=== PATIENT | female | born 1965 | race Caucasian/White ===

== ENCOUNTER 2019-06-09 14:05 | Emergency (ER) | payer OTHER, SELFPAY ==
--- NOTE | ~2019-06-09 | XR_ITS ---
EXAMINATION: XR chest 1V portable EXAM DATE: 06/09/2019 15:49 INDICATION: Cough, low-grade fever. TECHNIQUE: Portable AP frontal chest x-ray was obtained. Comparison is made to prior examination from 07/01/2017. FINDINGS: The lungs are clear. There are no pleural effusions. The cardiomediastinal silhouette is within normal limits. There is no pneumothorax suspected. The bones and soft tissues are unremarkab le. IMPRESSION: No acute cardiopulmonary findings. Reviewed, dictated and finalized at location A.
[2019-06-09 14:25] VITALS: BP 132/58; PULSE 84; RESP 18; TEMP 36.8; O2SAT 99
--- NOTE | 2019-06-09 14:36 | PC.NURSE ---
patient reports a four week history of being sick has been treated for shingle and uri.reports to er today with multiple and varied complaints includingsore throat, cough generalized edema and genital history. patient is weeping while giving health history
[2019-06-09 15:14] LABS: Basophils Absolute Auto 0.1 K/mm3 (0.0-0.1); Basophils Percent Auto 0.5 % (0.2-1.2); Eosinophils Absolute Auto 0.6 K/mm3 (0-0.3); Eosinophils Percent Auto 5.4 % (0-4.4); Hematocrit 40.8 % (37.0-47.0); Immature Granulocyte Absolute 0.02 K/mm3 (0.00-0.031); Immature Granulocyte Percent A 0.2 % (0-0.5); Lymphocytes Absolute Auto 4.32 K/mm3 (0.9-3.2); Lymphocytes Percent Auto 41.3 % (18.3-44.2); Mean Corpuscular HGB Conc 34.3 g/dl (32-36); Mean Corpuscular Hemoglobin 32.6 pg (26-34); Mean Corpuscular Volume 94.9 fl (80-100); Mean Platelet Volume 9.5 fl (7.4-10.4); Monocytes Absolute Auto 0.7 K/mm3 (0.1-0.6); Monocytes Percent Auto 6.8 % (2.6-8.5); Neutrophils Absolute Auto 4.8 K/mm3 (1.3-6.7); Neutrophils Percent Auto 45.8 % (45.5-73.1); Platelet Count Result 269 k/mm3 (150-375); Red Cell Distribution Width 13.2 % (11.5-14.5); White Blood Count 10.5 K/mm3 (4.5-10.0)
--- NOTE | 2019-06-09 15:18 | ED.GENADULT ---
HPI - General Adult General Chief complaint: Headache Stated complaint: edema knees Time Seen by Provider: 06/09/19 14:12 Source: patient Mode of arrival: ambulatory Limitations: no limitations History of Present Illness HPI narrative: Patient is a 53-year-old female who presents to emergency department for evaluation of generalized myalgias rash in the groin upper respiratory symptoms for the last 10 days seen at an outside hospital prescribed a Z-Ramon which she finished several days ago and notes he continues to have nonproductive cough generalized myalgias rash in the groin. Patient notes she gets intermittent nausea and vomiting denying any current diarrhea or urinary symptoms. Patient has been taking [id number] medications with minimal improvement notes that her blood glucose is also been elevated. Related Data Allergies Allergy/AdvReac Type Severity Reaction Status Date / Time peanut Allergy Severe Anaphylactic Verified 06/08/17 03:18 Shock codeine Allergy Mild Verified 06/08/17 03:18 Penicillins Allergy Unknown Unverified 06/08/17 03:18 Sulfa (Sulfonamide Allergy Unknown Hives / Verified 06/08/17 03:18 Antibiotics) Red Face CILLINS Allergy Mild Uncoded 08/17/07 15:26 Review of Systems Review of Systems: All systems reviewed & are unremarkable except as noted in HPI and below PMFSH Past Medical History Medical History (Updated 06/09/19 @ 16:40 by Stuart Benz PA-C) Diabetes mellitus Social History Social History (Updated 06/09/19 @ 15:22 by Stuart Benz PA-C) Smoking status: Never smoker Exam Narrative: Exam Narrative: GENERAL: Well-appearing, well-nourished, and in no acute distress. HEAD: Normocephalic, atraumatic. EYES: PERRLA and EOMI. ENT: Nares clear, no rhinorrhea or epistaxis. Mucous membranes moist. Oropharynx without tonsillar hypertrophy exudate or other lesions. NECK: Supple. No adenopathy or masses. CHEST: Clear to auscultation. No respiratory distress. No wheezes rales or rhonchi HEART: Regular rate and rhythm. No murmur heard. Normal peripheral pulses. ABDOMEN: Soft, nontender, nondistended, EXTREMITIES: Normal range of motion. No edema. SKIN: Warm, dry, no rash. NEURO: No focal deficits. Alert and oriented x3. Cranial nerves II through XII grossly intact PSYCH: Normal mood and affect. Course Course Emergency Course: Patient in the room in no distress advised to follow with primary care no distress Vital Signs Vital signs: Vital Signs Temperature 98.2 F 06/09/19 14:25 Pulse Rate 84 06/09/19 14:25 Respiratory Rate 18 06/09/19 14:25 Blood Pressure 132/58 L 06/09/19 14:25 Pulse Oximetry 99 06/09/19 14:25 Temperature 98.2 F 06/09/19 14:25 Pulse Rate 84 06/09/19 14:25 Respiratory Rate 18 06/09/19 14:25 Blood Pressure 132/58 L 06/09/19 14:25 Pulse Oximetry 99 06/09/19 14:25 Medical Decision Making MDM Narrative Medical decision making narrative: Patient in the room in no distress aware of case findings treatment plan and diagnosis agreeing to follow-up as directed or to return if symptoms worsen or concerns patient is afebrile nontoxic-appearing no distress felt appropriate for outpatient reevaluation. No pneumonia seen on exam. Patient is not hypoxic. Patient advised that she could potentially have viral syndrome or Covid virus and is advised to self quarantine and to follow with primary care and provided with reasons to return Vital Signs Vital Signs: Vital Signs Temperature 98.2 F 06/09/19 14:25 Pulse Rate 84 06/09/19 14:25 Respiratory Rate 18 06/09/19 14:25 Blood Pressure 132/58 L 06/09/19 14:25 Pulse Oximetry 99 06/09/19 14:25 Temperature 98.2 F 06/09/19 14:25 Pulse Rate 84 06/09/19 14:25 Respiratory Rate 18 06/09/19 14:25 Blood Pressure 132/58 L 06/09/19 14:25 Pulse Oximetry 99 06/09/19 14:25 Lab Data Result diagrams: 06/09/19 15:02 06/09/19 15:02
[2019-06-09] MEDS: ONDANSETRON INJ 4 MG/2 ML VIAL IV PUSH (15:30)
[2019-06-09 15:31] LABS: Alanine Aminotransferase 49 U/L (4-35); Albumin Level 3.8 g/dL (3.5-5.1); Alkaline Phosphatase 118 U/L (38-126); Aspartate Amino Transferase 47 U/L (14-36); Bilirubin,Total 0.4 mg/dL (0.2-1.3); Blood Urea Nitrogen 15 mg/dL (7-17); Calcium 8.4 mg/dL (8.4-10.2); Carbon Dioxide 29 mmol/L (22-30); Chloride 98 mmol/L (98-107); Estimated CRCL calculation 69 ml/min; Estimated Glomerular Filt Rate > 60; Glucose 170 mg/dL (65-105); Magnesium 1.9 mg/dL (1.6-2.3); Phosphorus 3.3 mg/dL (2.5-4.5); Sodium 133 mmol/L (137-145)
[2019-06-09] MEDS: SODIUM CHLORIDE 0.9% IV 1,000 ML 999 ML IV CONT ×2 (15:31→15:59)
[2019-06-09 15:32] LABS: Beta-Hydroxybutyrate/Acetoacetate 0.08 mmol/L (0.02-0.27)
[2019-06-09 15:35] LABS: Potassium 3.8 mmol/L (3.4-5.0)
[2019-06-09 16:05] VITALS: BP 108/75; PULSE 79; RESP 23; O2SAT 96
[2019-06-09 16:30] LABS: Add Urine Microscopic? YES; Appearance Urine Clear (Clear); Bilirubin Urine Negative (Negative); Blood Urine Negative (Negative); Color Urine Straw (Yellow); Glucose Urine UA 1+ mg/dL (Negative); Ketones Urine Negative (Negative); Leukocyte Esterase Ur Negative LEU/UL (Negative); Nitrate Urine Negative (Negative); Protein Urine Negative (Negative); RBC Urine 0-2 /hpf (0-2); Specific Grav Ur 1.009 (1.001-1.035); Squamous Epithelial Cell Urine Rare /hpf (Few); Urobilinogen Urine Negative mg/dL (<2.0); WBC Urine 0-3 /hpf
[2019-06-09 17:09] VITALS: BP 136/78; PULSE 80; RESP 20; O2SAT 99
--- NOTE | 2019-06-29 15:28 | PC.NURSE ---
late entry note from 4-13. 2 liters of normal saline infused
== END 2019-06-09 17:15 | disposition home or self-care (01) ==
PROVIDERS: Emergency Medicine Emergency Medical Services; Emergency Provider Emergency Medicine; PCP Family Medicine
DX: J06.9 Acute upper respiratory infection, unspecified (principal); B37.3 Candidiasis of vulva and vagina; Z20.828 Contact with and (suspected) exposure to other viral communicable diseases; E11.9 Type 2 diabetes mellitus without complications
CPT/HCPCS: 36415; 71045; 80053; 81001; 82010; 83735; 84100; 85025; 96361; 96365; 96375; 99284; J0131; J2405; J7030

== ENCOUNTER 2020-02-16 10:28 | Emergency (ER) | payer OTHER, SELFPAY ==
--- NOTE | ~2020-02-16 | XR_ITS ---
EXAMINATION: [id number] DATE: 02/16/2020 10:46 INDICATION: Right lower rib pain. Fall 2 days ago. TECHNIQUE: A frontal view of the chest and 3 views of the right ribs were obtained. COMPARISON: Chest single view 06/09/19, CT abdomen and pelvis 09/25/2015 FINDINGS: The chest demonstrates clear lungs without pneumonia, pleural effusion, or pneumothorax. Th e heart size is normal. Surgical clips in the right upper quadrant are likely from cholecystectomy. T here are old healed fractures of right seventh and eighth ribs. IMPRESSION: 1. No acute rib fracture. Reviewed, dictated and finalized at location B. MANAGER IMPRESSION: 1. No acute rib fracture.
--- NOTE | 2020-02-16 10:29 | ED.FALL ---
HPI - Fall General Chief Complaint: Fall Stated Complaint: FALL/RIB PAIN Time Seen by Provider: 02/16/20 10:49 Source: patient and RN notes reviewed Mode of arrival: ambulatory Limitations: no limitations History of Present Illness HPI Narrative: 54-year-old female presents with concern for a fall 3 days ago, reports she landed on a plastic box causing pain to her right lower ribs anteriorly. Reports pain immediately. Denies any difficulty breathing, shortness of breath. Reports deep breathing coughing, certain movements exacerbate pain. She reports she already takes pain medicine for arthritis. She has not been doing any other interventions for her pain MD complaint: fall Related Data Home Medications Medication Instructions Recorded Confirmed alprazolam 02/16/20 amlodipine 02/16/20 bupropion HCl mg PO 02/16/20 buspirone mg 02/16/20 calcium carbonate [Calcium Antacid] tablet 02/16/20 clonazepam 02/16/20 dicyclomine mg 02/16/20 duloxetine mg PO 02/16/20 gabapentin 02/16/20 hydrochlorothiazide 02/16/20 hydrocodone-acetaminophen 02/16/20 insulin lispro [Humalog KwikPen unit SUBCUT 02/16/20 Insulin] levothyroxine 02/16/20 metoclopramide HCl 02/16/20 omeprazole 02/16/20 ondansetron HCl 02/16/20 terbinafine HCl mg 02/16/20 trazodone 02/16/20 Allergies Allergy/AdvReac Type Severity Reaction Status Date / Time peanut Allergy Severe Anaphylactic Verified 06/08/17 03:18 Shock codeine Allergy Mild Verified 06/08/17 03:18 Penicillins Allergy Unknown Unverified 06/08/17 03:18 Sulfa (Sulfonamide Allergy Unknown Hives / Verified 06/08/17 03:18 Antibiotics) Red Face CILLINS Allergy Mild Uncoded 08/17/07 15:26 Review of Systems Review of Systems: Narrative: CONSTITUTIONAL: Denies malaise, chills, sweats, or fever. CARDIOVASCULAR: Denies chest pain, palpitations, or edema. RESPIRATORY: Denies cough or dyspnea. Reports rib pain, right anterior GASTROINTESTINAL: Denies abdominal pain, nausea, vomiting SKIN: Denies bruising, redness, open skin MUSCULOSKELETAL: Reports right rib pain All systems reviewed & are unremarkable except as noted in HPI and below PMFSH Past Medical History Medical History (Updated 02/16/20 @ 11:11 by Deneen Pollock NP) Diabetes mellitus Social History Social History (Updated 06/09/19 @ 15:22 by Stuart Benz PA-C) Smoking status: Never smoker Comments At time of signature, agree with nursing past medical, surgical, social and family history. There is no relevant family history pertinent to the presenting complaint Exam Narrative: Exam Narrative: GENERAL: Well-appearing, well-nourished, and in no acute distress. HEAD: Normocephalic, atraumatic. EYES: PERRLA, conjunctivae clear NECK: Supple. CHEST: No respiratory distress. Clear to auscultation. No bony deformities, no asymmetry. Speaks in full sentences. No visible trauma, bruising, redness, deformities HEART: Regular rate and rhythm. No murmur heard. SKIN: Warm, dry, no rash. No ecchymosis, erythema noted to chest wall NEURO: Alert and oriented x3. PSYCH: Normal mood and affect Course Course Emergency Course: Patient is aware of diagnosis, understands and agrees to treatment plan. Anticipatory guidance given. Patient agrees to follow-up as directed and is aware of reasons to seek care at the emergency department. Portions of this record may have been created with voice recognition software Vital Signs Vital signs: Vital Signs Temperature 96 F L 02/16/20 10:35 Pulse Rate 96 02/16/20 10:35 Respiratory Rate 22 H 02/16/20 10:35 Blood Pressure 138/97 H 02/16/20 10:35 Pulse Oximetry 100 02/16/20 10:35 Temperature 96 F L 02/16/20 10:37 Pulse Rate 96 02/16/20 10:37 Respiratory Rate 22 H 02/16/20 10:37 Blood Pressure 138/97 H 02/16/20 10:37 Pulse Oximetry 100 02/16/20 10:37 Reviewed. MDM - Fall MDM Narrative Medical decision making narrative:
[2020-02-16 10:35] VITALS: BP 138/97; PULSE 96; RESP 22; TEMP 35.5; O2SAT 100
[2020-02-16 10:37] VITALS: BP 138/97; PULSE 96; RESP 22; TEMP 35.5; O2SAT 100
== END 2020-02-16 11:16 | disposition home or self-care (01) ==
PROVIDERS: Emergency Provider Nurse Practitioner; PCP Family Medicine
DX: S20.211A Contusion of right front wall of thorax, initial encounter (principal); W19.XXXA Unspecified fall, initial encounter; M19.90 Unspecified osteoarthritis, unspecified site; E11.9 Type 2 diabetes mellitus without complications; J44.9 Chronic obstructive pulmonary disease, unspecified
CPT/HCPCS: 71101; 99213; G0463

== ENCOUNTER 2020-02-21 11:18 | Emergency (ER) | payer OTHER, SELFPAY ==
--- NOTE | ~2020-02-21 | XR_ITS ---
EXAMINATION: XR wrist RT min 3V DATE: 02/21/2020 11:35 INDICATION: Right wrist pain and swelling. TECHNIQUE: 5 views of right wrist were obtained. COMPARISON: None. FINDINGS: There is an avulsion fracture of dorsal pole of triquetrum. There is mild osteoarthritis of first carpometacarpal joint. There is soft tissue swelling of the wrist. IMPRESSION: 1. Avulsion fracture of dorsal pole of triquetrum. Reviewed, dictated and finalized at location A. MIC TILE INSTALLER
[2020-02-21 11:22] VITALS: BP 119/83; PULSE 101; RESP 16; TEMP 36.6; O2SAT 99
--- NOTE | 2020-02-21 11:45 | ED.UPPEXIN ---
HPI - Extremity Injury (Upper) General Chief Complaint: Extremity Injury, Upper Stated Complaint: rt wrist injury Time Seen by Provider: 02/21/20 11:44 Source: patient and RN notes reviewed Mode of arrival: ambulatory Limitations: no limitations History of Present Illness HPI narrative: 54-year-old female presents concern for right wrist injury. Reports last night she was looking at [employer] lights in her yard when she tripped over a wire in the yard causing right wrist swelling, pain. Reports she used ice last night. Denies decreased sensation, strength in right hand, digits. Reports decreased range of motion due to digit swelling. MD complaint: injury to: right and wrist Related Data Home Medications Medication Instructions Recorded Confirmed amlodipine 02/16/20 bupropion HCl mg PO 02/16/20 buspirone mg 02/16/20 calcium carbonate [Calcium Antacid] tablet 02/16/20 clonazepam 02/16/20 dicyclomine mg 02/16/20 duloxetine mg PO 02/16/20 hydrochlorothiazide 02/16/20 hydrocodone-acetaminophen 02/16/20 insulin lispro [Humalog KwikPen unit SUBCUT 02/16/20 Insulin] levothyroxine 02/16/20 omeprazole 02/16/20 ondansetron HCl 02/16/20 terbinafine HCl mg 02/16/20 trazodone 02/16/20 Allergies Allergy/AdvReac Type Severity Reaction Status Date / Time peanut Allergy Severe Anaphylactic Verified 06/08/17 03:18 Shock codeine Allergy Mild Anaphylaxis Verified 02/21/20 11:36 Penicillins Allergy Unknown Anaphylaxis Unverified 02/21/20 11:36 Sulfa (Sulfonamide Allergy Unknown Hives / Verified 06/08/17 03:18 Antibiotics) Red Face CILLINS Allergy Mild Anaphylaxis Uncoded 02/21/20 11:36 Review of Systems Review of Systems: Narrative: CONSTITUTIONAL: Denies malaise, chills, sweats, or fever. SKIN: Denies abrasion, laceration MUSCULOSKELETAL: Reports right wrist pain, swelling NEUROLOGIC: Denies numbness, weakness All systems reviewed & are unremarkable except as noted in HPI and below PMFSH Past Medical History Medical History (Updated 02/21/20 @ 11:54 by Deneen Pollock NP) Diabetes mellitus Social History Social History (Updated 06/09/19 @ 15:22 by Stuart Benz PA-C) Smoking status: Never smoker Comments At time of signature, agree with nursing past medical, surgical, social and family history. There is no relevant family history pertinent to the presenting complaint Exam Narrative: Exam Narrative: GENERAL: Well-appearing, well-nourished, and in no acute distress. HEAD: Normocephalic, atraumatic. EYES: PERRLA, conjunctivae clear NECK: Supple. CHEST: Speaks in full sentences. No respiratory distress. HEART: Regular rate and rhythm. Normal and equal peripheral pulses. EXTREMITIES: Right wrist, hand, digits have normal strength and sensation, limited normal range of motion. Dorsal wrist edema and ecchymosis. 5/5 strength with digit flexion and extension. Normal sensation with sensitivity to light touch and pain. Dorsal wrist tenderness. No open wounds, no skin tenting, no devitalized tissue or atrophy, no trophic changes, no obvious deformity, alignment normal, nearby joints and structures intact. Distal pulses palpable and equal bilaterally, skin warm, dry, pink. Capillary refill less than 3 seconds. SKIN: Warm, dry, no rash. NEURO: Alert and oriented x3. PSYCH: Normal mood and affect Course Course Emergency Course: Patient reports she feels safe at home. 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 Patient is aware of diagnosis, understands and agrees to treatment plan. Anticipatory guidance given. Patient agrees to follow-up as directed and is aware of reasons to seek care at the emergency department. Portions of this record may have been created with voice recognition software Vital Signs Vital signs: Vital Signs Temperature 97.8 F 02/21/20 11:22 Pulse Rate 101 H 02/21/20 11:22
== END 2020-02-21 12:09 | disposition home or self-care (01) ==
PROVIDERS: Emergency Provider Nurse Practitioner; PCP Family Medicine
DX: S62.111A Displaced fracture of triquetrum [cuneiform] bone, right wrist, initial encounter for closed fracture (principal); W18.09XA Striking against other object with subsequent fall, initial encounter; I10 Essential (primary) hypertension; J44.9 Chronic obstructive pulmonary disease, unspecified; K21.9 Gastro-esophageal reflux disease without esophagitis; E11.9 Type 2 diabetes mellitus without complications; F41.9 Anxiety disorder, unspecified
CPT/HCPCS: 29125; 73110; 99214; A4565; G0463

== ENCOUNTER 2020-05-02 12:25 | Emergency (ER) | payer OTHER, SELFPAY ==
[2020-05-02 12:28] VITALS: BP 178/112; PULSE 99; RESP 16; TEMP 36.3; O2SAT 99
--- NOTE | 2020-05-02 13:40 | PC.NURSE ---
pt states is going to her pmds office to have labs completed.
== END 2020-05-02 13:40 | disposition left against medical advice (07) ==
LOC: ANHED 13:52
PROVIDERS: PCP Family Medicine
DX: M25.552 Pain in left hip (principal)
CPT/HCPCS: 99199

== ENCOUNTER 2020-06-21 12:26 | Emergency (ER) | payer OTHER, SELFPAY ==
[2020-06-21] VITALS (7 sets, daily range): BP systolic 128–156; BP diastolic 79–97; PULSE 74–82; RESP 16–18; TEMP 35.6; O2SAT 95–100
--- NOTE | ~2020-06-21 | CT_ITS ---
EXAMINATION: CT abdomen pelvis w con EXAM DATE: 06/21/2020 14:45 INDICATION: Epigastric pain for a few weeks. History of pancreatitis.. TECHNIQUE: Spiral CT of the abdomen and pelvis was performed following intravenous injection of 100 m L Omnipaque 350. Axial, coronal and sagittal images of the abdomen and pelvis were reviewed. The do se-length product (DLP) for this examination was 386.73 mGy-cm. The exposure was tailored according to patient size (auto mA exposure control), and iterative reconstruction (ASIR) was used as additiona l dose reduction technique. Comparison is made to prior examination from 10/05/2015. FINDINGS: Interval development of a 2 cm partially cystic mass left kidney midpole anterior cortex co nsistent with renal cell cancer. There is no hydronephrosis. The liver, spleen, adrenal glands and p ancreas are unremarkable. There are surgical clips in the gallbladder fossa. Some biliary duct dila tion which is common finding following cholecystectomy. The uterus is not identified and has likely been surgically resected. The bladder is unremarkable. There is no retroperitoneal or pelvic lympha denopathy. There is moderate scattered arteriosclerotic disease. The appendix is not positively visualized. There is no pericecal inflammatory change to suggest appe ndicitis. The stomach and small bowel are unremarkable. There is moderate amount of colonic stool. No free intraperitoneal gas. The heart is normal in size. There are no pericardial or pleural e ffusions. Bibasilar subsegmental atelectasis. There are no osteoblastic or osteolytic lesions ident ified. IMPRESSION: 1. Interval development small left renal mass, likely renal cell cancer. consult. 2. No evidence of metastatic disease or acute intra-abdominal findings. Reviewed, dictated and finalized at location A. IMPRESSION: 1. Interval development small left renal mass, likely renal cell cancer. co nsult. 2. No evidence of metastatic disease or acute intra-abdominal findings.
[2020-06-21 13:25] LABS: Basophils Absolute Auto 0.1 K/mm3 (0.0-0.1); Basophils Percent Auto 0.6 % (0.2-1.2); Eosinophils Absolute Auto 0.7 K/mm3 (0-0.3); Eosinophils Percent Auto 6.3 % (0-4.4); Hematocrit 42.7 % (37.0-47.0); Hemoglobin 14.3 g/dL (12.0-15.0); Immature Granulocyte Absolute 0.03 K/mm3 (0.00-0.031); Immature Granulocyte Percent A 0.3 % (0-0.5); Lymphocytes Absolute Auto 4.68 K/mm3 (0.9-3.2); Lymphocytes Percent Auto 41.1 % (18.3-44.2); Mean Corpuscular HGB Conc 33.5 g/dl (32-36); Mean Corpuscular Hemoglobin 31.9 pg (26-34); Mean Corpuscular Volume 95.3 fl (80-100); Mean Platelet Volume 9.4 fl (7.4-10.4); Monocytes Absolute Auto 0.8 K/mm3 (0.1-0.6); Monocytes Percent Auto 6.8 % (2.6-8.5); Neutrophils Absolute Auto 5.1 K/mm3 (1.3-6.7); Neutrophils Percent Auto 44.9 % (45.5-73.1); Platelet Count Result 305 k/mm3 (150-375); Red Blood Count 4.48 M/mm3 (4.2-5.4); Red Cell Distribution Width 13.4 % (11.5-14.5); White Blood Count 11.4 K/mm3 (4.5-10.0)
[2020-06-21 13:31] LABS: Add Urine Microscopic? YES; Appearance Urine Cloudy (Clear); Bacteria Urine Trace /hpf; Bilirubin Urine Negative (Negative); Blood Urine Negative (Negative); Color Urine Yellow (Yellow); Glucose Urine UA Negative (Negative); Ketones Urine Negative (Negative); Leukocyte Esterase Ur 1+ LEU/UL (Negative); Mucus Urine Rare /lpf; Nitrate Urine Negative (Negative); Protein Urine 1+ mg/dL (Negative); Specific Grav Ur 1.023 (1.001-1.035); Squamous Epithelial Cell Urine Many /hpf (Few); Urobilinogen Urine Negative mg/dL (<2.0)
[2020-06-21] MEDS: ONDANSETRON INJ 4 MG/2 ML VIAL IV PUSH (13:45)
[2020-06-21] MEDS: SODIUM CHLORIDE 0.9% IV 1,000 ML 999 ML IV CONT (13:45)
[2020-06-21] MEDS: MORPHINE SULFATE (*CRX) 4 MG/ML INJ IV PUSH (13:45)
[2020-06-21 14:05] LABS: Albumin Level 3.9 g/dL (3.5-5.1); Alkaline Phosphatase 115 U/L (38-126); Anion Gap 7 mmol/L (8-16); Aspartate Amino Transferase 29 U/L (14-36); Bilirubin,Total 0.2 mg/dL (0.2-1.3); Blood Urea Nitrogen 9 mg/dL (7-17); Calcium 8.3 mg/dL (8.4-10.2); Carbon Dioxide 27 mmol/L (22-30); Chloride 100 mmol/L (98-107); Estimated CRCL calculation 68 ml/min; Estimated Glomerular Filt Rate > 60; Glucose 241 mg/dL (65-105); Lipase 129 U/L (23-300); Potassium 3.2 mmol/L (3.4-5.0); Sodium 134 mmol/L (137-145)
[2020-06-21 14:24] LABS: Alanine Aminotransferase 22 U/L (4-35)
--- NOTE | 2020-06-21 14:27 | ED.ABDPAIN ---
HPI - Abdominal Pain General Chief Complaint: Abdominal Pain Stated Complaint: ABD Pain, Back Pain Time Seen by Provider: 06/21/20 12:36 History of Present Illness HPI narrative: Patient is a 54-year-old female who presents ER with epigastric pain. Patient has history of pancreatitis has been recurrent for years related to her diabetes. She feels like she has had increased flare over the last 2 weeks. Pain is sharp and radiates to her back. She works fever of 100.2 ?F last night. Sure reports that she has had outpatient esophageal dilation and last couple days had to [facility] which is where she is also had some recent work-up for her chronic pancreatitis. She reports she had a CT scan there that showed a couple of lesions on her pancreas and her liver that they are continuing to evaluate. She has had no biopsies. Related Data Home Medications Medication Instructions Recorded Confirmed amlodipine 10 mg PO DAILY 02/16/20 02/21/20 bupropion HCl 150 mg PO DAILY 02/16/20 02/21/20 buspirone 10 mg PO TID 02/16/20 02/21/20 calcium carbonate [Calcium Antacid] 1 tablet PO . DIRECTED 02/16/20 02/21/20 clonazepam 0.5 mg PO DAILY PRN 02/16/20 02/21/20 dicyclomine 20 mg PO BID PRN 02/16/20 02/21/20 duloxetine 60 mg PO DAILY 02/16/20 02/21/20 hydrochlorothiazide 25 mg PO DAILY 02/16/20 02/21/20 hydrocodone-acetaminophen 1 tablet PO Q4-6H PRN 02/16/20 02/21/20 insulin lispro [Humalog KwikPen 0 unit SUBCUT . DIRECTED 02/16/20 02/21/20 Insulin] levothyroxine 125 mcg PO DAILY 02/16/20 02/21/20 omeprazole 20 mg PO DAILY 02/16/20 02/21/20 ondansetron HCl 4 mg PO DAILY PRN 02/16/20 02/21/20 terbinafine HCl 250 mg PO DAILY 02/16/20 02/21/20 trazodone 100 mg PO HS 02/16/20 02/21/20 Allergies Allergy/AdvReac Type Severity Reaction Status Date / Time peanut Allergy Severe Anaphylactic Verified 06/21/20 13:08 Shock codeine Allergy Mild Anaphylaxis Verified 06/21/20 13:08 Penicillins Allergy Unknown Anaphylaxis Verified 06/21/20 13:08 Sulfa (Sulfonamide Allergy Unknown Hives / Verified 06/21/20 13:08 Antibiotics) Red Face CILLINS Allergy Mild Anaphylaxis Uncoded 06/21/20 13:08 Review of Systems Review of Systems: All systems reviewed & are unremarkable except as noted in HPI and below Constitutional: Constitutional: Reports chills, Reports fever(s) and Reports weakness ENT: Denies nasal congestion and Denies sore throat Cardiovascular: Cardiovascular: Denies chest pain, Denies rapid heart rate and Denies radiating jaw, neck or arm pain Respiratory: Respiratory: Denies cough and Denies dyspnea Gastrointestinal: Gastrointestinal: Reports abdominal pain, Reports diarrhea (Chronic), Reports nausea and Reports vomiting Genitourinary: Genitourinary: Denies nocturia, Denies dysuria and Denies flank pain Musculoskeletal: Musculoskeletal: Denies back pain and Denies muscle cramps PMFSH Past Medical History Medical History (Updated 06/21/20 @ 16:46 by Sourav Ware MD) COPD (chronic obstructive pulmonary disease) Diabetes mellitus History of pancreatitis Hypertension Surgical History Surgical History (Updated 06/21/20 @ 14:30 by Sourav Ware MD) H/O esophagogastroduodenoscopy History of cholecystectomy Social History Social History (Updated 03/22/20 @ 10:54 by Roselyn Benz) Smoking status: Current every day smoker Alcohol intake: never Additional occupation/education comments: disabled Gender identity (if verbalized by the patient): Female Exam Narrative: Exam Narrative: GENERAL: Well-appearing, well-nourished, and in no acute distress. HEAD: Normocephalic, atraumatic. CHEST: Clear to auscultation. No respiratory distress. HEART: Regular rate and rhythm. Normal peripheral pulses. ABDOMEN: Soft,mild epigastric pain, nondistended EXTREMITIES: Normal range of motion. No edema. SKIN: Warm, dry, no rash. NEURO: Alert and oriented x3. PSYCH: Normal mood and affect. Course Course
--- NOTE | 2020-06-21 16:35 | PC.NURSE ---
Upon entering room with pt. Pt very tearful. PT states Can you let this rail down I am ready to go. That doctor was so rude to me. I can't even believe this. I just want to go. This RN speaking with pt. She would like to have her paperwork. This RN told pt we are awaiting call back from urologist. Pt states I don't want anything from this doctor. I will find a urologist through my primary doctor. I just want my paperwork so I can go. EDP aware of this.
== END 2020-06-21 16:50 | disposition home or self-care (01) ==
PROVIDERS: Emergency Provider Emergency Medicine; PCP Family Medicine
DX: R10.13 Epigastric pain (principal); G89.29 Other chronic pain; N28.89 Other specified disorders of kidney and ureter; J44.9 Chronic obstructive pulmonary disease, unspecified; E11.9 Type 2 diabetes mellitus without complications; I10 Essential (primary) hypertension; F17.210 Nicotine dependence, cigarettes, uncomplicated; Z79.4 Long term (current) use of insulin
CPT/HCPCS: 36415; 74177; 80053; 81001; 83690; 85025; 87086; 87088; 96361; 96374; 96375; 99284; J2270; J2405; J7030; Q9967

== ENCOUNTER 2021-08-29 08:36 | Emergency (ER) | payer OTHER, SELFPAY ==
[2021-08-29] VITALS (17 sets, daily range): BP systolic 122–167; BP diastolic 80–114; PULSE 68–100; RESP 10–25; TEMP 36.3–36.8; O2SAT 97–99
--- NOTE | ~2021-08-29 | CT_ITS ---
EXAMINATION: CT brain wo con DATE: 08/29/2021 09:42 INDICATION: Confusion. Altered mental status. TECHNIQUE: Computed tomography (CT) of the head was performed without intravenous contrast. The mA wa s adjusted according to patient size. Iterative reconstruction technique was employed. The dose-lengt h product was 529.67 mGy-cm. COMPARISON: Head CT 05/23/2017 FINDINGS: There are scattered areas of low attenuation in the cerebral white matter. There is no intr acranial hemorrhage, acute infarction, or abnormal intracranial mass lesion. The ventricles are deana l in size. There is mild mucosal thickening in the paranasal sinuses. The orbits are normal. The mast oid air cells are normal. IMPRESSION: 1. Mild nonspecific cerebral white matter disease, which likely represents chronic small vessel ische shamar disease. Reviewed, dictated and finalized at location A. IMPRESSION: 1. 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
--- NOTE | ~2021-08-29 | CT_ITS ---
EXAMINATION: CT abdomen pelvis w con INDICATION: Abdominal pain TECHNIQUE: Computed tomographic images of the abdomen and pelvis were obtained after the administrati on of 100 cc of Omnipaque 350 intravenous contrast. The dose-length product (DLP) was 373.54 mGy-cm. Automated exposure control and iterative reconstruction technique were employed. COMPARISON: 06/21/2020 FINDINGS: The lung bases are clear. The heart size is normal. The gallbladder is surgically absent. T here is mild enlargement of the common bile duct and central intrahepatic ducts which is likely due t o post cholecystectomy state. There is chronic pneumobilia left hepatic lobe. The liver is otherwise unremarkable. The liver is diffusely low in attenuation when compared with the spleen, consistent wit h hepatic steatosis. The spleen, pancreas, and adrenal glands are normal. There has been interval flora atment of the previously described left kidney mass. The right kidney is unremarkable. There is calci fied atherosclerosis of the aorta and many of the other arteries. No pathologically enlarged abdomina l or pelvic lymph nodes are identified. There is no free intraperitoneal gas or evidence of bowel obs truction. There is mild lumbar spondylosis. IMPRESSION: 1. No CT correlate for the patient's symptoms. Reviewed, dictated and finalized at location A.
--- NOTE | 2021-08-29 08:41 | ECG_ITS ---
Measurements Intervals [place] Rate: 96 P: 35 WI: 154 QRS: -6 QRSD: 84 T: 51 QT: 381 QTc: 483 Interpretive Statements SINUS RHYTHM BASELINE ARTIFACT POSSIBLE LEFT ATRIAL ENLARGEMENT BORDERLINE ECG NO PREVIOUS ECG AVAILABLE FOR COMPARISON Electronically Signed On 08-29-2021 14:47:56 CDT by Himanshu Salgado M.D.
--- NOTE | 2021-08-29 08:41 | ED.ABDPAIN ---
HPI - Abdominal Pain General Chief Complaint: Abdominal Pain Stated Complaint: Confusion Time Seen by Provider: 08/29/21 08:41 History of Present Illness HPI narrative: The patient is a 55-year-old female with a history of type 2 diabetes, hypertension, chronic pancreatitis, presenting to the emergency department for evaluation of abdominal pain, nausea and vomiting. Patient initially walked to a urgent care that is very near to her house and was in the waiting room at [facility] when an ambulance was called by staff there. It was felt that the patient was confused, and needing higher level of care although it seems as if she had not been evaluated by a provider at that facility patient was noted to have a glucose greater than 200s, was mildly hypertensive, awake, alert and oriented to person, place, and to time initially per EMS, patient stated that she did not know where she was but then when questioned again she knew that she was at [facility]. Patient was transported in stable condition to our emergency department. At the time of assessment, patient states that she feels dehydrated and does not feel right. She is reporting upper abdominal pain. Patient denies fever, chills, recent sick contacts. She denies multiple episodes of nonbloody, nonbilious emesis. She denies dysuria or hematuria. Related Data Home Medications Medication Instructions Recorded Confirmed amlodipine 10 mg tablet 10 mg PO DAILY 02/16/20 02/21/20 bupropion HCl 150 mg 24 hr tablet, 150 mg PO DAILY 02/16/20 02/21/20 extended release buspirone 10 mg tablet 10 mg PO TID 02/16/20 02/21/20 calcium carbonate 300 mg (750 mg) 1 tablet PO . DIRECTED 02/16/20 02/21/20 chewable tablet (Calcium Antacid) clonazepam 0.5 mg tablet 0.5 mg PO DAILY PRN Anxiety 02/16/20 02/21/20 dicyclomine 20 mg tablet 20 mg PO BID PRN Spasms 02/16/20 02/21/20 duloxetine 30 mg capsule,delayed 60 mg PO DAILY 02/16/20 02/21/20 release hydrochlorothiazide 25 mg tablet 25 mg PO DAILY 02/16/20 02/21/20 hydrocodone 5 mg-acetaminophen 325 1 tablet PO Q4-6H PRN Pain 02/16/20 02/21/20 mg tablet insulin lispro 100 unit/mL 0 unit subcut . DIRECTED 02/16/20 02/21/20 subcutaneous pen (Humalog KwikPen (U-100) Insulin) levothyroxine 125 mcg tablet 125 mcg PO DAILY 02/16/20 02/21/20 omeprazole 20 mg capsule,delayed 20 mg PO DAILY 02/16/20 02/21/20 release ondansetron HCl 4 mg tablet 4 mg PO DAILY PRN Nausea 02/16/20 02/21/20 terbinafine HCl 250 mg tablet 250 mg PO DAILY 02/16/20 02/21/20 trazodone 100 mg tablet 100 mg PO HS 02/16/20 02/21/20 Allergies Allergy/AdvReac Type Severity Reaction Status Date / Time peanut Allergy Severe Anaphylactic Verified 08/29/21 08:43 Shock codeine Allergy Mild Anaphylaxis Verified 08/29/21 08:43 Penicillins Allergy Unknown Anaphylaxis Verified 08/29/21 08:43 Sulfa (Sulfonamide Allergy Unknown Hives / Verified 08/29/21 08:43 Antibiotics) Red Face CILLINS Allergy Mild Anaphylaxis Uncoded 08/29/21 08:43 Review of Systems Review of Systems: CONSTITUTIONAL: Denies fever, chills, or sweats. EYES: Denies visual changes, redness, or discharge. ENT: Denies rhinorrhea, congestion, sore throat, or otalgia. CARDIOVASCULAR: Denies chest pain, palpitations, or edema. RESPIRATORY: Denies cough or dyspnea. GASTROINTESTINAL: Reports abdominal pain, nausea and vomiting GENITOURINARY: Denies dysuria or hematuria. SKIN: Denies rash or itching. MUSCULOSKELETAL: Denies back pain, joint pain, or myalgia. NEUROLOGIC: Denies headache, numbness, reports feeling generally weak, denies focal weakness or numbness PMFSH Past Medical History Medical History COPD (chronic obstructive pulmonary disease) Diabetes mellitus History of pancreatitis Hypertension Surgical History Surgical History H/O esophagogastroduodenoscopy History of cholec
[2021-08-29] MEDS: SODIUM CHLORIDE 0.9% IV 2,000 ML 999 ML IV CONT (08:48)
[2021-08-29] MEDS: FAMOTIDINE 20 MG/2 ML VIAL IV PUSH (08:49)
[2021-08-29] MEDS: ONDANSETRON INJ 4 MG/2 ML VIAL IV PUSH (08:49)
[2021-08-29] MEDS: DICYCLOMINE HCL INJ 20 MG/2 ML VIAL IM (08:49)
[2021-08-29 09:01] LABS: Glucose Point of Care 237 mg/dl (65-105)
[2021-08-29 09:03] LABS: Basophils Absolute Auto 0.1 K/mm3 (0.0-0.1); Basophils Percent Auto 0.6 % (0.2-1.2); Eosinophils Absolute Auto 0.3 K/mm3 (0-0.3); Eosinophils Percent Auto 2.7 % (0-4.4); Hematocrit 47.8 % (37.0-47.0); Hemoglobin 16.4 g/dL (12.0-15.0); Immature Granulocyte Absolute 0.03 K/mm3 (0.00-0.031); Immature Granulocyte Percent A 0.2 % (0-0.5); Lymphocytes Absolute Auto 4.91 K/mm3 (0.9-3.2); Lymphocytes Percent Auto 39.6 % (18.3-44.2); Mean Corpuscular HGB Conc 34.3 g/dl (32-36); Mean Corpuscular Hemoglobin 31.8 pg (26-34); Mean Corpuscular Volume 92.6 fl (80-100); Mean Platelet Volume 9.4 fl (7.4-10.4); Monocytes Absolute Auto 0.8 K/mm3 (0.1-0.6); Monocytes Percent Auto 6.3 % (2.6-8.5); Neutrophils Absolute Auto 6.3 K/mm3 (1.3-6.7); Neutrophils Percent Auto 50.6 % (45.5-73.1); Platelet Count Result 367 k/mm3 (150-375); Red Blood Count 5.16 M/mm3 (4.2-5.4); Red Cell Distribution Width 13.2 % (11.5-14.5); White Blood Count 12.4 K/mm3 (4.5-10.0)
[2021-08-29 09:12] LABS: Lactic Acid Reflex 1.2 mmol/L (0.7-2.0)
[2021-08-29 09:13] LABS: Ethanol < 10 mg/dL (<10)
[2021-08-29 09:15] LABS: Alanine Aminotransferase 48 U/L (6-35); Albumin Level 4.5 g/dL (3.5-5.1); Alkaline Phosphatase 138 U/L (38-126); Anion Gap 6 mmol/L (8-16); Aspartate Amino Transferase 35 U/L (14-36); Bilirubin,Total 0.6 mg/dL (0.2-1.3); Blood Urea Nitrogen 9 mg/dL (7-17); Calcium 9.3 mg/dL (8.4-10.2); Carbon Dioxide 27 mmol/L (22-30); Chloride 103 mmol/L (98-107); Estimated CRCL calculation 67 ml/min; Estimated Glomerular Filt Rate > 60; Glucose 236 mg/dL (65-110); Lipase 141 U/L (23-300); Sodium 136 mmol/L (137-145)
[2021-08-29] MEDS: KETOROLAC 15 MG/ML VIAL (*BKC) IV PUSH (11:02)
[2021-08-29 11:10] LABS: Appearance Urine Clear (Clear); Bilirubin Urine Negative (Negative); Blood Urine Negative (Negative); Color Urine Yellow (Yellow); Glucose Urine UA Negative (Negative); Ketones Urine Negative (Negative); Leukocyte Esterase Ur Negative LEU/UL (Negative); Nitrate Urine Negative (Negative); Protein Urine Negative (Negative); Urobilinogen Urine 0.2 mg/dL (<2.0); pH Urine 5.5 (5.0-9.0)
[2021-08-29 11:12] LABS: Add Urine Microscopic? NO
[2021-08-29 11:26] LABS: Barbiturate Screen Urine Negative (Negative); Benzodiazepines Screen Urine Negative (Negative)
[2021-08-29 11:31] LABS: Cannabinoid Screen Urine Negative (Negative); Cocaine Screen Urine Negative (Negative); Methadone Screen Urine Negative (Negative); Opiate Screen Urine Negative (Negative); Phencyclidine Screen Urine Negative (Negative)
[2021-08-29 12:14] LABS: Amphetamine Screen Urine Positive (Negative)
== END 2021-08-29 12:34 | disposition home or self-care (01) ==
PROVIDERS: Emergency Provider Emergency Medicine
DX: R10.10 Upper abdominal pain, unspecified (principal); E86.0 Dehydration; E11.9 Type 2 diabetes mellitus without complications; I10 Essential (primary) hypertension; K86.1 Other chronic pancreatitis; J44.9 Chronic obstructive pulmonary disease, unspecified; Z79.4 Long term (current) use of insulin; F17.200 Nicotine dependence, unspecified, uncomplicated; R90.82 White matter disease, unspecified; R94.31 Abnormal electrocardiogram [ECG] [EKG]
CPT/HCPCS: 36415; 70450; 74177; 80053; 80307; 81003; 82948; 83605; 83690; 84443; 85025; 93005; 96361; 96372; 96374; 96375; 99284; J0500; J1885; J2405; J7030; Q9967